=== PATIENT | male | born 1950 | race Caucasian/White ===

== ENCOUNTER → 2023-08-22 | Outpatient (REF) | payer MEDICARE | LOC: M SFHCDERM 17:26 | PROVIDERS: ATTEND Dermatology | DX: C44.719 Basal cell carcinoma of skin of left lower limb, including hip (principal) ==

== ENCOUNTER → 2023-09-24 | Outpatient (CLI) | payer MEDICARE | LOC: M ONCR 13:22 | PROVIDERS: ATTEND General Practice | DX: C44.719 Basal cell carcinoma of skin of left lower limb, including hip (principal); F17.210 Nicotine dependence, cigarettes, uncomplicated; Z80.1 Family history of malignant neoplasm of trachea, bronchus and lung; Z80.42 Family history of malignant neoplasm of prostate ==

== ENCOUNTER → 2024-11-27 | Outpatient (REF) | payer MEDICARE, OTHER | LOC: M SFHCDERM 17:22 | PROVIDERS: ATTEND Nurse Practitioner Family | DX: C44.629 Squamous cell carcinoma of skin of left upper limb, including shoulder (principal) ==